=== PATIENT | male | born 1950 | race Caucasian/White ===

== ENCOUNTER → 2017-08-03 | Outpatient (CLI) | payer MEDICARE, BC ==
[~2017-08-03] MED LIST: ALDACTONE 25MG25 MG NG; ASPIRIN 81MG TA81 MG PO; ATORVASTATIN CA80 MG PO; DOXAZOSIN 4MG TA4 MG PO; FUROSEMIDE 20MG20 MG FT; LISINOPRIL 5MG T5 MG PO; METOPROLOL SUCC50 M2 PO
[2017-08-03 13:36] LABS: HEMOGLOBIN 14.6 g/dL (14.1-18.0); LYMPH % 20.8 % (10-50)
[2017-08-03 14:39] LABS: BUN 16 mg/dL (7-18)
[2017-08-03 15:06] LABS: GFR (ESTIMATED) 67 ML/MIN (>60)
== END ==
LOC: CARL-LAB 11:29
PROVIDERS: Internal Medicine Adolescent Medicine
DX: E78.5 Hyperlipidemia, unspecified (principal); I25.5 Ischemic cardiomyopathy; R73.9 Hyperglycemia, unspecified

== ENCOUNTER 2017-09-16 08:41 | Day surgery (SDC) | payer MEDICARE ==
[~2017-09-16] VITALS: Ht 177.8 cm; Wt 131.5 kg
--- NOTE | 2017-09-16 10:28 | Operative Note ---
Surgeon/Diagnoses Surgeon/[employer]er(s) Date of procedure: 09/16/17 Surgeon: MD Milton Art Diagnoses Pre-op diagnosis: History of colon polyps Hemorrhoids Small cecal AVM Post-op diagnosis Same as preoperative diagnoses, with the addition of the following: Colon polyps Procedure Procedure Procedure: Colonoscopy with polypectomy Indications: JERSON LOVE is a 67 year-old Male with a history of colonoscopy in January this year that was somewhat complicated by severe spasticity and lack of relaxation. He had fairly complex/large polyps in the cecum, and at 50 cm there were excised and found to be adenomatous. Sessile serrated adenomatous changes were noted. He returns for short-term repeat colonoscopy. Of note, a small cecal AVM and hemorrhoidal cushions were also noted on prior evaluation. Findings: Bowel preparation fair Fairly significant spasticity (slightly improved versus prior evaluation in terms of lack of relaxation) Unchanged small cecal arteriovenous malformation Unchanged immoral cushions with no active bleeding or thrombosis Multiple complex polyps (see specimens) Procedure Description: After informed consent was obtained, the patient was taken to the endoscopy suite. Monitored anesthesia care ensued after he was transferred to the LEFT lateral decubitus position. Digital rectal exam revealed some hemorrhoidal cushions. No thrombosis or bleeding was seen. The colonoscope was placed in position. The entire colon was evaluated. Bowel preparation was relatively fair with irrigation and suctioning used to improve visualization. Fairly significant spasticity was once again encountered. Some improvement in terms of lack of relaxation was noted when compared to prior evaluation in January of this year. Hemorrhoidal cushions were visualized and no active bleeding or thrombosis was seen. A small cecal arteriovenous malformation was once again seen and no significant changes were noted a small cecal polyp in the periappendiceal area was removed by way of cold biopsy forceps. A small transverse colon polyp was excised with cold biopsy forceps. An 8 mm sessile transverse colon polyp was excised by way of snare. Adjacent complex sessile distal transverse colon polyps were excised by way of snare. An 8-9 mm splenic flexure sessile polyp was excised by way snare. A sessile polyp at 80 cm and an adjacent polyp were excised by way snare and cold biopsy forceps. Small hyperplastic appearing polyps were noted throughout the sigmoid colon. The colonoscope was carefully removed the patient was transferred to recovery. EBL (ml): 1 Anesthesia: Monitored anesthesia care Complications: No immediate Specimens: Small cecal polyp (periappendiceal) Small transverse colon polyp 8mm transverse colon polyp Distal transverse colon polyp and adjacent polyp Splenic flexure polyp Sessile polyp and adjacent polyps at 50 cm Disposition Disposition: Stable to recovery from where he will be discharged home. He will follow up in one week. Repeat colonoscopy is pending pathology but will likely be between 1-2 years secondary to size/nature/number polyps and spasticity. at [id number]
[2017-09-16 14:30] VITALS: BP 129/79
== END 2017-09-16 10:54 | disposition home or self-care (01) ==
LOC: SDC 08:41
PROVIDERS: Surgery
PROC: 0DBH8ZX Excision of Cecum, Via Natural or Artificial Opening Endoscopic, Diagnostic (ICD-10-PCS; 2017-09-16)
PROC: 0DBL8ZX Excision of Transverse Colon, Via Natural or Artificial Opening Endoscopic, Diagnostic (ICD-10-PCS; 2017-09-16)
PROC: 0DBL8ZX Excision of Transverse Colon, Via Natural or Artificial Opening Endoscopic, Diagnostic (ICD-10-PCS; principal; 2017-09-16 09:00)
DX: Z09 Encounter for follow-up examination after completed treatment for conditions other than malignant neoplasm (principal); Z86.010 Personal history of colon polyps; K64.9 Unspecified hemorrhoids; K63.5 Polyp of colon